=== PATIENT | male | born 1960 | race Caucasian/White ===

== ENCOUNTER 2024-05-04 10:38 | Outpatient (CLI) | payer OTHER | END 2024-05-04 10:42 | disposition home or self-care (01) | LOC: SONOGRAMA 10:38 | PROVIDERS: ATTEND Pathology Anatomic Pathology & Clinical Pathology | DX: D34 Benign neoplasm of thyroid gland (principal); E06.3 Autoimmune thyroiditis; E04.8 Other specified nontoxic goiter ==